=== PATIENT | male | born 1930 | race Caucasian/White ===

== ENCOUNTER 2018-06-02 13:15 | Inpatient (IN) | payer MEDICARE, BC, OTHER ==
[~2018-06-02] VITALS: Ht 152.4 cm; Wt 65.6 kg
--- NOTE | ~2018-06-02 | PLAN ---
[place] [address] REHAB UNIT PLAN OF CARE Name: HUDSON GUERRA Room: [address] IN [facility]#: [id number] Admission: 06/02/18 Attend Phys: Arabella Burns DO Discharge: Date of : [birth year] Report #: [id number] THIS REPORT FOR: //name// CC: Arabella óLpez DATE OF SERVICE: 06/03/2018 SUBJECTIVE: The patient doing well this afternoon, was transferred yesterday from [facility] for Parkinson disease and weakness. Previous level of function was modified independent to independent. Current level of function is minimum to moderate assist. Estimated length of stay is 14-16 days. Rehabilitation prognosis is good. Medical prognosis is good. PLAN OF CARE: Physical Therapy will see the patient 60-90 minutes per day for 5 days a week for ambulation, balance and coordination. Occupational Therapy will see the patient 60-90 minutes per day for 5 days a week for upper extremity strength, balance, coordination, bathing, dressing, and toileting. Speech and Language Pathology will see the patient 30-90 minutes per day for 5 days a week. This is an overall plan of care and may change and will be updated as needed. Estimated length of stay is 14-16 days with plan to discharge home after that. By: [id number] Burns DO /tiburcio
[2018-06-02] MEDS ORDERED: CLONAZEPAM 0.50.5 M1 PO (13:53)
[2018-06-02] MEDS ORDERED: FLORINEF ACETA0.1 MG PO (13:58)
[2018-06-02] MEDS ORDERED: WELLBUTRIN SR100 MG PO (14:01)
[2018-06-02] MEDS ORDERED: IRON325 PO (14:02)
[2018-06-02] MEDS ORDERED: ELIQUIS5 MG PO (14:05)
[2018-06-02] MEDS ORDERED: VITAMIN D2000 UNIT PO (14:09)
[2018-06-02] MEDS ORDERED: CARDIZEM CD120 MG PO (14:11)
[2018-06-02] MEDS ORDERED: DOFETILIDE250 MCG PO (14:16)
[2018-06-02] MEDS ORDERED: SINEMET CR 25-1 EACH PO (14:20)
[2018-06-02] MEDS ORDERED: LEXAPRO 10 MG T10 M2 PO (14:21)
[2018-06-02] MEDS ORDERED: LASIX 20 MG TAB20 MG PO (14:22)
[2018-06-02] MEDS ORDERED: NAMENDA 10 MG T10 MG PO (14:23)
[2018-06-02] MEDS ORDERED: OMEGA 3 1,0001 EACH PO (14:25)
[2018-06-02] MEDS ORDERED: DITROPAN XL5 MG PO (14:26)
[2018-06-02] MEDS ORDERED: PROTONIX40 M1 PO (14:28)
[2018-06-02] MEDS ORDERED: PRESERVISION A1 EACH PO (14:30)
--- NOTE | 2018-06-02 18:37 | NUR ---
PT ORIENTATED TO ROOM AND CONTROLS. PT IS ALERT BUT FORGETFULL.PT DOES HAVE TREMORS AND IS UNSTEADY WHEN UP.PT AMBULATES WITH GAITBELT AND WALKER MOD ASSIST OF 1 AND EXTRA TIME. PT DID GO TO BATHROOM AND VOIDED WELL.ADMISSION COMPLETE WITH DAUGHTER AND AT BEDSIDE.
[2018-06-02 19:00] VITALS: BP 95/56
[2018-06-03 04:16] LABS: HEMATOCRIT 35.3 % (42.0-52.0); HEMOGLOBIN 11.9 gm/dL (14.0-18.0); MCH 33.9 pg (26.0-34.0); MCHC 33.5 g/dL (28.0-37.0); MCV 101.1 fL (80.0-100.0); MPV 9.8 fl. (7.2-11.1); RBC 3.49 mil/uL (4.50-6.00); RDW-CV 15.7 % (10.5-14.5)
[2018-06-03 04:24] LABS: CALCIUM 9.1 mg/dL (8.5-10.1); CREATININE 1.2 mg/dL (0.6-1.3)
--- NOTE | 2018-06-03 06:06 | NUR ---
ASSUMED PT CARE AT 1930. PT ALERT AND ORIENTED TO SELF BUT SOMETIMES FORGETFUL, POLITE AND COOPERATIVE WITH CARES. PT ATTEMPTED TO AMBULATE TO BATHROOM TO VOID WITH ASSIST OF TWO, GAIT BELT AND WALKER BUT WAS UNSTEADY AND UNABLE TO STAND. PT VOIDED PER URINAL, STAFF EMPTIED. PRN TYLENOL ONCE FOR NECK ACHE. PT SLEPT WELL OVERNIGHT. USES CALL LIGHT APPROPRIATELY. CALL LIGHT AND FREQUENTLY USED ITEMS WITHIN USE. HOURLY ROUNDING COMPLETED, WILL CONTINUE TO MONITOR.
[2018-06-03 08:57] VITALS: BP 144/83
[2018-06-03 09:17] VITALS: BP 144/93
--- NOTE | 2018-06-03 18:03 | NUR ---
ASSUMED CARE AT 0730 PATIENT ALERT/ORIENTED, TYLENOL GIVEN X1 FOR NECK/BACK PAIN WITH GOOD RELIEF, UP WITH ASSIST OF ONE AND WALKER/GAIT BELT, PATIENT VERY UNSTEADY ON FEET, HAVE TO REMIND HIM TO KEEP WALKER UP CLOSE TO HIS BODY. HOURLY ROUNDING COMPLETED, BED/CHAIR ALARMS IN PLACE, CALL LIGHT IN REACH, PARTICIPATED IN ALL THERAPIES, TO DINING ROOM FOR MEALS
[2018-06-03 19:25] VITALS: BP 132/71
--- NOTE | 2018-06-03 19:25 | NUR ---
SITTING UP IN RECLINER WATCHING TV. STATES PAIN IN NECK AND BACK AT A "7". PATIENT FORGOT THAT IT HAD ONLY BEEN A HOUR SINCE RECEIVING TYLENOL. STATES SOMETIMES TAKES ALEVE AT HOME. TRANSFERRED FROM CHAIR TO BED WITH CGA, GAITBELT, WALKER, SOME LIFTING ASSIST WITH LEGS. CALL LIGHT AND URINAL WITHIN REACH. TOOK MEDICATIONS WHOLE A FEW AT A TIME WITH WATER.
--- NOTE | 2018-06-04 05:51 | NUR ---
RESTED QUIETLY WITH CPAP. USED URINAL X 3 DURING THE NIGHT. GAVE ALEVE LAST NIGHT WITH RELIEF. TYLENOL GIVEN THIS MORNING FOR NECK AND BACK PAIN. WILL CONTINUE TO MONITOR. HOURLY ROUNDING IN PROGRESS.
[2018-06-04 08:06] VITALS: BP 121/85
--- NOTE | 2018-06-04 16:54 | NUR ---
ASSUMED CARE AT 0730 PATIENT ALERT/FORGETFUL, TYLENOL GIVEN FOR NECK PAIN WITH FAIR RELIEF, UP TO W/C WITH WALKER/GAIT BELT, QUEING NEEDED TO KEEP WALKER CLOSE TO BODY AND TO REACH BACK WHEN SITTING DOWN. BED/CHAIR ALARMS IN PLACE, CALL LIGHT IN REACH, HOURLY ROUNDING COMPLETED. TO DINING ROOM FOR MEALS. FAMILY WITH PATIENT IN DINING ROOM WATCHING CHIEFS THIS AFTERNOON.
[2018-06-04 19:20] VITALS: BP 128/65
--- NOTE | 2018-06-04 19:20 | NUR ---
RESTING QUIETLY IN BED AND WATCHING [employer] ON TV. TYLENOL GIVEN PER REQUEST FOR COMPLAINT OF BACK PAIN RATED "7". CALL LIGHT AND URINAL WITHIN REACH. WILL CONTINUE TO MONITOR.
--- NOTE | 2018-06-05 05:10 | NUR ---
RESTED QUIETLY. USED URINAL X ONE DURING THE NIGHT. GAVE TYLENOL FOR COMPLAINAT OF BACK PAIN AT 0424 WITH RELIEF. PATIENT COMPLAINED OF DRY ITCHY SKIN ON LEGS. PROVIDED WITH LOTION AND PATIENT RUBBED LOTION ON HIS LEGS. HOURLY ROUNDING IN PROGRESS.
[2018-06-05 07:32] VITALS: BP 143/90
--- NOTE | 2018-06-05 13:02 | NUR ---
Nutrition: Padmitted to rehab. H/o Parkinson's, CVA, dementia, afib. Toleratin gtherapies. Wt: 148#. Eating 50-75% of Heart Healthy diet. On fish oil, MVI, lasix. No albumin recorded. Appears at low to mild risk. Will follow weekly.
--- NOTE | 2018-06-05 15:55 | NUR ---
SW met with pt to complete initial assessment, introduce self, and SW role on inpt rehab unit. Pt lives at home with . Pt dtr lives downstairs in the same home and is supportive as needed. Pt has a RW. Pt has a bipap with [facility]. Pt has hx with HH but does not recall name of agency. Pt PCP Lazaro López MD. SW to continue to follow to assist with safe dc planning.
--- NOTE | 2018-06-05 18:34 | NUR ---
PT CALLS FOR ASSIST TO BATHROOM AND AMBULATES WITH 1,GAITBELT AND WALKER WITH SLOW UNSTEADY GAIT AND QUEING. PRN FOR NECK AND BACK PAIN GIVEN THIS AFTERNOON WITH GOOD EFFECT.PT HAS URINARY DRIBBLING AND NEEDS ASSIST WITH CLEANSING AFTER BM. PT HAS HAD 3 MOD SOFT FORMED BM'S TODAY. PT ALERT BUT CAN BE FORGETFULL. PT EATS MEALS IN DINNINGROOM.
[2018-06-05 20:00] VITALS: BP 118/64
--- NOTE | 2018-06-05 20:25 | NUR ---
RESTING QUIETLY IN BED AND WATCHING TV. URINAL CAN CALL LIGHT WITHIN REACH. TYLENOL GIVEN PER REQUEST FOR COMPLAINT OF BACK PAIN.
--- NOTE | 2018-06-06 05:31 | NUR ---
RESTED WITH CPAP ON/OFF. USED URINAL DURING THE NIGHT. NO FURTHER COMPLAINT OF PAIN. HOURLY ROUNDING IN PROGRESS.
[2018-06-06 07:54] VITALS: BP 138/78
--- NOTE | 2018-06-06 18:41 | NUR ---
PT REMINDED TO CALL FOR ASSIST UP TO BATHROOM OR TO TRANSFERR. PT UP WITH GAITBELT AND WALKER AND QUEING TO STAY IN WALKER AND TAKE BIGGER STEPS. PRN FOR NECK PAIN GIVEN EARLIER WITH GOOD EFFECT. PT VOIDS WELL AND HAS HAD MED SOFT BM TODAY. PT EATS MEALS IN DINNINGROOM AND IS PLESANT AND APPROPIATE. BED AND CHAIR ALARMS USED.
[2018-06-06 20:00] VITALS: BP 146/59
--- NOTE | 2018-06-07 01:46 | NUR ---
ASSUMED CARE @ 1944-.FOUND WALKING W/ GB & WALKER ALONE BY BATHROOM DOOR ALREADY.INSTRUCTED TO CALL FOR ASSIST.CLAIMS DOES NOT WANT TO BOTHER NURSES.SEE PAIN MANAGEMENT @ 2002.BED ALARM PUT ON @ 2019 WHILE IN BED.HOB UP. URINAL W/IN REACH.WANTS TO TAKE OFF PJ PANTS & UNDERWEAR @ 2019.ASSISTED. PATIENT WANTS RN TO APPLY Z GUARD PASTE TO PINK GROINS & DONE @ 2024 AFTER BEST CARE.STILL AWAKE @ 2199-WATCHING TV & C PAP ALREADY ON @ THIS TIME.WANTS ANOTHER DIMITRI ICE CREAM @ 0000-06/07-TUE.BUT ONLY AVAILABLE IS VANILLA ICE CREAM & TAKEN BY PATIENT.NURSE EMPTIES URINAL @ NIGHT.ON HOURLY ROUNDS.MEDIA ACCOUNT EXECUTIVE DOING ODD HOUR ROUNDS.
--- NOTE | 2018-06-07 05:13 | NUR ---
SLEEPING EARLY SINCE 2047 BUT AWAKE @ INTERVALS @ 0000-06/07-TUE.-0200 & 0300. NO TREMORS NOTED.BRP X1 FOR BM.USED URINAL X3.URINE ACCIDENT X1.SPILLED URINAL IN BEDPAD.TOOK ALL DIMITRI ICE CREAM HS SNACK & VANILLA ICE CREAM @ 0000.
[2018-06-07 07:30] VITALS: BP 127/70
[2018-06-07 13:11] LABS: INFLUENZA A ANTIGEN None Detected (None Detect); INFLUENZA B ANTIGEN None Detected (None Detect)
--- NOTE | 2018-06-07 16:09 | NUR ---
JOSEPH and med rohit Irizarry met with pt to review team conference summary and plan for pt to remain on rehab unit to continue therapies at least one more week with team to reassess pt length of stay during team conference next Tuesday. Pt in agreement with plan. SW to continue to follow to assist with safe dc planning and contacting family as well.
--- NOTE | 2018-06-07 19:34 | NUR ---
ASSUMED CARE AT 0730 PATIENT ALERT/ORIENTED, TYLENOL GIVEN X1 FOR HEAD CONGESTION PATIENT STARTED ON CLARITIN FOR COLD SYMPTOMS, FLU SWAB WAS NEGATIVE. HOURLY ROUNDING COMPLETED, BED/CHAIR ALARMS IN PLACE, CALL LIGHT IN REACH, PARTICIPATED IN ALL THERAPIES TODAY, TO DINING ROOM FOR MEALS. PATIENT IS TO BE RETEAMED.
[2018-06-07 20:39] VITALS: BP 117/68
--- NOTE | 2018-06-07 20:50 | NUR ---
RESTING QUIETLY IN BED AND WATCHING BASKETBALL ON TV. TYLENOL GIVEN PER REQUEST FOR COMPLAINT OF HEADACHE AND SORE THROAT. CALL LIGHT AND URINAL WITHIN REACH. TOOK MEDICATIONS WHOLE A FEW AT A TIME WITH WATER.
--- NOTE | 2018-06-08 05:54 | NUR ---
ANAY PARIKH GIVEN FOR COMPLAINT OF COUGHING WITH RELIEF. USED URINAL DURING THE NIGHT. USED CPAP DURING THE NIGHT. HOURLY ROUNDING IN PROGRESS.
[2018-06-08 09:35] VITALS: BP 128/74
[2018-06-08 20:30] VITALS: BP 115/66
--- NOTE | 2018-06-09 05:29 | NUR ---
ASSUMED PT CARE AT 1930. PT ALERT AND ORIENTED X4, BUT FORGETFUL. POLITE AND COOPERATIVE WITH CARES. PT HAS COUGH. TYLENOL X1 FOR NECK PAIN. TESSALON PEARLES ONCE FOR COUGH. USES URINAL OVERNIGHT, STAFF EMPTIES. PT WEARS HOME CPAP OVERNIGHT. USES CALL LIGHT APPROPRIATELY. CALL LIGHT AND FREQUENTLY USED ITEMS WITHIN REACH. HOURLY ROUNDING IN PROGRESS, WILL CONTINUE TO MONITOR.
[2018-06-09 08:14] VITALS: BP 125/75
--- NOTE | 2018-06-09 15:53 | NUR ---
SW attempted to call pt family to follow up and provide any updates related to team conference and plan to reteam; SW left detailed message with pt and encouraged call back with any questions or concerns. SW to continue to follow to assist with safe dc planning.
--- NOTE | 2018-06-09 18:34 | NUR ---
ASSUMED CARE AT 0730 PATIENT ALERT/ORIENTED, NO COMPLAINTS OF PAIN THIS SHIFT, TESSALON PEARLS GIVEN X2 WITH GOOD RELIEF, UP WITH ONE AND WALKER/GAIT BELT, HOURLY ROUNDING COMPLETED, BED/CHAIR ALARMS IN PLACE, CALL LIGHT IN REACH, PARTICIPATED IN ALL THERAPIES TODAY, TO DINING ROOM FOR MEALS.
[2018-06-09 20:26] VITALS: BP 108/50
--- NOTE | 2018-06-10 05:31 | NUR ---
ASSUMED PT CARE AT 1930. PT ALERT AND ORIENTED X4, POLITE AND COOPERATIVE WITH CARES. TYLENOL X1 FOR NECK PAIN. USES URINAL OVERNIGHT, STAFF EMPTIES. PT WEARS HOME CPAP OVERNIGHT. USES CALL LIGHT APPROPRIATELY. CALL LIGHT AND FREQUENTLY USED ITEMS WITHIN REACH. HOURLY ROUNDING IN PROGRESS, WILL CONTINUE TO MONITOR.
[2018-06-10 08:00] VITALS: BP 125/88
[2018-06-10 20:00] VITALS: BP 108/61
--- NOTE | 2018-06-11 05:25 | NUR ---
ASSUMED PT CARE AT 1930. PT ALERT AND ORIENTED X4, POLITE AND COOPERATIVE WITH CARES. PT UP WITH ONE, GAIT BELT AND WALKER TO BATHROOM, STOOL X1. PT USES URINAL OVERNIGHT, STAFF EMPTIES. PRN TYLENOL ONCE THIS SHIFT FOR NECK PAIN. WEARS HOME CPAP OVERNIGHT. TAKES PILLS WHOLE WITH WATER WITHOUT DIFFICULTY. USES CALL LIGHT APPROPRIATELY. CALL LIGHT AND FREQUENTLY USED ITEMS WITHIN REACH. BED ALARM ON FOR SAFETY. HOURLY ROUNDING IN PROGRESS, WILL CONTINUE TO MONITOR.
[2018-06-11 07:50] VITALS: BP 130/75
--- NOTE | 2018-06-11 18:21 | NUR ---
AM ASSESSMENT AND VITAL SIGNS COMPLETED DOCUMENTED. PT ASSISTED TO BATHROOM, DINING ROOM AND AROUND ROOM SEVERAL TIMES THIS SHIFT. PT's GAIT CAN BE UNSTEADY, HE REQUIRES FREQUENT INSTRUCTIONS ON USING THE WALKER. TESSALON PEARLES AND COUGH DROPS GIVEN FOR OCCASIONAL NON PRODUCTIVE COUGH. PT's FAMILY VISITED FOR A SHORT TIME THIS EVENING. FALL PRECAUTIONS AND HOURLY ROUNDING CONTINUE.
[2018-06-11 20:00] VITALS: BP 108/61
--- NOTE | 2018-06-12 05:05 | NUR ---
ASSUMED CARES AT 1920. ALERT AND ORIENTED. PLEASANT. PRODUCTIVE COUGH THROUGHOUT THE NIGHT. TESSLON PERLES GIVEN. TAKES PILLS WHOLE. ALEVE GIVEN FOR NECK PAIN. CPAP AT NIGHT. MIN ASSIST WITH GAIT BELT AND WALKER. USED URINAL AND NURSING EMPTIED. SLEPT SOME OFF AND ON. USED CALL LIGHT APPROPRIATELY. BED ALARM ON.
[2018-06-12 07:45] VITALS: BP 133/71
--- NOTE | 2018-06-12 17:00 | NUR ---
ASSUMMED CARE OF PT AT 0730, PT ALERT, FORGETFUL, PT TRANSFERS WITH ASSIST OF 1, GB WALKER, COMPLAINS OF NECK PAIN, MEDICATED X 1 PER ORDER, VOIDS PER URINAL/TOILET, MEALS IN DININGROOM, PARTICIPATED IN ALL THERAPIES, HOURLY ROUNDING COMPLETE, ASSESSMENT COMPLETE, WILL CONTINUE TO MONITOR.
[2018-06-12 20:00] VITALS: BP 122/66
--- NOTE | 2018-06-13 05:23 | NUR ---
ASSUMED PT CARE AT 1930. PT ALERT AND ORIENTED X4, POLITE AND COOPERATIVE WITH CARES. PT UP WITH ONE, GAIT BELT AND WALKER TO BATHROOM. PT USES URINAL OVERNIGHT, STAFF EMPTIES. PRN TYLENOL ONCE THIS SHIFT FOR NECK PAIN. WEARS HOME CPAP OVERNIGHT. PRODUCTIVE COUGH. TAKES PILLS WHOLE WITH WATER WITHOUT DIFFICULTY. USES CALL LIGHT APPROPRIATELY. CALL LIGHT AND FREQUENTLY USED ITEMS WITHIN REACH. BED ALARM ON FOR SAFETY. HOURLY ROUNDING IN PROGRESS, WILL CONTINUE TO MONITOR.
[2018-06-13 08:30] VITALS: BP 121/74
--- NOTE | 2018-06-13 14:41 | NUR ---
SW called and spoke at length with pt Marjan in preparation for team conference on Tuesday. Pt commented that she felt pt was doing better but she also had hoped pt would be walking better. Pt commented that she is very hopeful pt will be able to walk their dtr down the aisle in her wedding on Tuesday night. SW to continue to follow to assist with safe dc planning.
--- NOTE | 2018-06-13 16:28 | NUR ---
ASSUMMED CARE OF PT AT 0730, PT ALERT, FORGETFUL, TRANSFERS WITH ASSIT OF 1, NEEDS SOME LIFTING ASSIST AT TIMES, AMBULATES TO BATHROOM WITH MIN ASSIST OF 1, GB WALKER, VOIDS PER URINAL AND TOILET, BM X 1 THIS SHIFT, TAKING FOOD AND FLUIDS WELL, COMPLAINS OF LOOSE COUGH, MEDICATED PER ORDER, STATES HIS NECK FEELS ALITTLE BETTER TODAY, DID NOT NEED ANY PAIN MEDICATION, PARTICIPATED IN ALL THERAPIES, HOURLY ROUNDING COMPLETED ASSESSMENT COMPLETE, WILL CRISTINA TO MONITOR.
[2018-06-13 20:00] VITALS: BP 119/66
--- NOTE | 2018-06-14 05:46 | NUR ---
ASSUMED PT CARE AT 1930. PT ALERT AND ORIENTED X4, POLITE AND COOPERATIVE WITH CARES. PT UP WITH ONE, GAIT BELT AND WALKER TO BATHROOM. PT USES URINAL OVERNIGHT, STAFF EMPTIES. PRN TYLENOL ONE THIS SHIFT FOR NECK PAIN AND PRN TESSALON PERLES ONCE FOR COUGH. PT SLEPT WELL, WEARS HOME CPAP OVERNIGHT. TAKES PILLS WHOLE WITH WATER WITHOUT DIFFICULTY. USES CALL LIGHT APPROPRIATELY. CALL LIGHT AND FREQUENTLY USED ITEMS WITHIN REACH. HOURLY ROUNDING IN PROGRESS, WILL CONTINUE TO MONITOR.
[2018-06-14 08:20] VITALS: BP 145/81
--- NOTE | 2018-06-14 16:31 | NUR ---
JOSEPH and Dr Burns met with pt to review team conference summary and plan for pt to remain on rehab unit another week with team to reassess pt length of stay during team conference next Tuesday with a pass on Tuesday for pt to go to pt dtr's tueding. Team's recommendation is for pt to be wc level down the aisle as opposed to risk of falling with walker down a carpeted possibly sloped aisle. Pt in agreement with plan. SW to discuss plan with pt family and to continue to follow to assist with safe dc planning.
--- NOTE | 2018-06-14 17:50 | NUR ---
ASSUMED CARE AT 0730 PATIENT ALERT/ORIENTED, NO COMPLAINTS OF PAIN THIS SHIFT, UP WITH ASSIST OF ONE AND WALKER/GAIT BELT, TO DINING ROOM FOR MEALS, BED/CHAIR ALARMS IN PLACE, CALL LIGHT IN REACH, HOURLY ROUNDING COMPLETED, PARTICIPATED IN ALL THERAPIES TODAY
[2018-06-14 20:00] VITALS: BP 136/61
--- NOTE | 2018-06-15 01:35 | NUR ---
ASSUMED CARE @ .SITS IN RECLINER W/ LE'S UP VISITING W/ , DAUGHTER & HER & BEHAVIORAL HEALTH ASSOCIATE.NO TREMORS NOTED.SEE PAIN MANAGEMENT @ 2211. URINAL W/IN REACH @ NIGHT.BED ALARM PUT ON @ 2129.HOB UP WHILE IN BED.ON HOURLY ROUNDS.WOUND CARE CENTER CONSULTANT DOING ODD HOUR ROUNDS.
--- NOTE | 2018-06-15 05:15 | NUR ---
SLEPT LATE SINCE -06/15-TUESDAY & SLEEPING ALL NIGHT.TURNS SELF @ NIGHT.BRP X2 W/ ASSIST.USED URINAL X1 DURING NIGHT.TOOK ALL DIMITRI.ICE CREAM HS SNACK.
[2018-06-15 07:00] VITALS: BP 125/85
[2018-06-15 08:00] VITALS: BP 125/85
--- NOTE | 2018-06-15 17:50 | NUR ---
ASSUMED CARE AT 0730 PATIENT ALERT/ORIENTED, FORGETFUL/HX OF DEMENTIA. UP WITH ASSIST OF ONE AND WALKER/GAIT BELT, NO COMPLAINTS OF PAIN THIS SHIFT, PARTICIPATED IN ALL THERAPIES TODAY, TO DINING ROOM FOR MEALS, BED/CHAIR ALARMS IN PLACE CALL LIGHT IN REACH, HOURLY ROUNDING COMPLETED. PASS FOR DAUGHTERS WEDDING TOMORROW.
[2018-06-15 20:20] VITALS: BP 129/75
--- NOTE | 2018-06-16 02:59 | NUR ---
ASSUMED CARE @ 1929-06/15-.BEING ASSISTED TO BED BY ANOTHER RN @ THIS TIME.URINAL W/IN REACH.BED ALARM PUT ON @ 1929.HOB UP.C PAP ALREADY ON @ 2299. SEE PAIN MANAGEMENT @ 54-06/16-TUESDAY.ON HOURLY ROUNDS.RETAIL CUSTOMER SERVICE REPRESENTATIVE DOING ODD HOUR ROUNDS.
--- NOTE | 2018-06-16 05:26 | NUR ---
SLEPT LATE SINCE 2300 & SLEEPING GOOD ALL NIGHT.BRP W/ ASSIST X1.USED URINAL X2.NURSE EMPTIES URINAL @ NIGHT.TOOK ALL ORANGE SHERBET HS SNACK.
[2018-06-16 07:00] VITALS: BP 116/65
--- NOTE | 2018-06-16 14:31 | NUR ---
ASSUMED CARE AT 0730. ALERT ORIENTED PLEASANT COOPERATIVE. HX OF PARKINSONS AND DEMENTIA. SITTING IN RECLINER AT BEDSIDE. EATING BREAKFAST APPETITE FAIR HE DIDNT LIKE BREAKFAST MENU THIS A.M. TOOK MEDS ONE AT A TIME WITH WATER WITHOUT DIFFICULTY. DENIES PAIN OR CONCERNS. USES CALL LIGHT APPROPRIATELY FOR ASSISTANCE. PARTICIPATING IN THERAPIES THROUGHOUT THE DAY. TRANSFERS WITH SBA G BELT AND WALKER.
--- NOTE | 2018-06-16 17:51 | NUR ---
PTS. DAUGHTER ARRIVED AT 1725 TO NURSERY RN PT. FOR WEDDING PASS FORM SIGNED AND INSTRUCTIONS TO CALL IF THEY ARENT HERE BY 2100.
[2018-06-16 21:45] VITALS: BP 127/70
--- NOTE | 2018-06-17 05:27 | NUR ---
ASSUMED CARES AT 1920. PT WAS OFF OF UNIT ON PASS FOR DAUGHTER'S WEDDING AND RETURNED AT 2100 VIA W/C. ALERT AND ORIENTED. FORGETFUL AT TIMES. C/O NECK PAIN. TYLENOL GIVEN. TAKES PILLS WHOLE BUT NEEDS EXTRA TIME. MIN ASSIST WITH GAIT BELT AND WALKER. UP TO BATHROOM BUT ALSO USED URINAL OVERNIGHT. NURSING EMPTIED. CPAP ON AT NIGHT. SLEPT WELL. CALL LIGHT IN REACH AND BED ALARM ON.
[2018-06-17 07:53] VITALS: BP 126/70
--- NOTE | 2018-06-17 18:04 | NUR ---
ASSUMED CARE AT 0730 PATIENT ALERT/ORIENTED, TYLENOL AND TRAMADOL GIVEN THIS SHIFT FOR NECK PAIN WITH FAIR RELIEF, UP WITH ASSIST OF ONE AND WALKER/GAIT BELT, TO DINING ROOM FOR MEALS, BED/CHAIR ALARMS IN PLACE, CALL LIGHT IN REACH, HOURLY ROUNDING COMPLETED, PARTICIPATED IN ALL THERAPIES TODAY
[2018-06-17 20:27] VITALS: BP 126/66
--- NOTE | 2018-06-18 05:28 | NUR ---
ASSUMED PT CARE AT 1930. PT ALERT AND ORIENTED, POLITE AND COOPERATIVE WITH CARES. PT OCCASIONALLY FORGETFUL. PRN TYLENOL ONCE FOR C/O NECK PAIN. TAKES PILLS WHOLE WITH WATER WITHOUT DIFFICULTY. MIN ASSIST WITH GAIT BELT AND WALKER. USED URINAL OVERNIGHT, STAFF EMPTIED. HOME CPAP OVERNIGHT. CALL LIGHT AND FREQUENTLY USED ITEMS WITHIN REACH. BED ALARM ON FOR SAFETY. USES CALL LIGHT APPROPRIATELY. HOURLY ROUNDING IN PROGRESS, WILL CONTINUE TO MONITOR.
[2018-06-18 08:42] VITALS: BP 126/84
--- NOTE | 2018-06-18 18:59 | NUR ---
ASSUMED CARE AT 0730 PATIENT ALERT/ORIENTED, FORGETFUL, UP WITH ASSIST OF ONE AND WALKER/GAIT BELT, HOURLY ROUNDING COMPLETED, BED/CHAIR ALARMS IN PLACE, CALL LIGHT IN REACH. TO DINING ROOM FOR MEALS
[2018-06-18 20:00] VITALS: BP 116/60
[2018-06-19 04:20] LABS: CALCIUM 8.6 mg/dL (8.5-10.1); CREATININE 1.3 mg/dL (0.6-1.3); POTASSIUM 3.8 mmol/L (3.5-5.1)
--- NOTE | 2018-06-19 05:15 | NUR ---
ASSUMED PT CARE AT 1930. PT ALERT AND ORIENTED, POLITE AND COOPERATIVE WITH CARES. SOMETIMES FORGETFUL. SITTING UP IN RECLINER AT SHIFT CHANGE. TRANSFERS WITH MIN ASSIST OF ONE, GAIT BELT AND WALKER. PT TO BATHROOM TO VOID, NO STOOL THIS SHIFT. PRN TYLENOL ONCE FOR C/O NECK PAIN. TAKES PILLS WHOLE WITH WATER WITHOUT DIFFICULTY. USED URINAL OVERNIGHT, STAFF EMPTIED. WORE HOME CPAP ALL NIGHT. BED ALARM ON FOR SAFETY. USES CALL LIGHT APPROPRIATELY. HOURLY ROUNDING IN PROGRESS, WILL CONTINUE TO MONITOR.
[2018-06-19 07:30] VITALS: BP 130/58
--- NOTE | 2018-06-19 16:45 | NUR ---
ASSUMED CARE AT 0730. ALERT AND ORIENTED PLEASANT COOPERATIVE. HX OF PARKINSONS TRANSFERS WITH 1 ASSIST G BELT WALKER FROM BED TO RECLINER AT BEDSIDE. FEEDS SELF BREAKFAST ATE OK. TAKES MEDS WITH WATER WITHOUT DIFFICULTY. AMBULATED TO TOILET USING WALKER THIS AFTERNOON. UP IN RECLINER MOST OF THE DAY. PARTICIPATING IN THERAPIES THROUGHOUT THE DAY. DENIES PAIN OR CONCERNS.
[2018-06-19 20:00] VITALS: BP 139/69
--- NOTE | 2018-06-20 05:37 | NUR ---
ASSUMED PT CARE AT 1930. PT ALERT AND ORIENTED, POLITE AND COOPERATIVE WITH CARES. HX OF PARKINSONS. SITTING UP IN RECLINER AT SHIFT CHANGE WATCHING FOOTBALL. TRANSFERS WITH MIN ASSIST OF ONE, GAIT BELT AND WALKER. PT TO BATHROOM AT SHIFT CHANGE, STOOL X1. PRN TYLENOL AND PRN TRAMADOL ONCE EACH FOR NECK PAIN. TAKES PILLS WHOLE WITH WATER WITHOUT DIFFICULTY. PT SLEPT WELL OVERNIGHT. USES URINAL TO VOID, STAFF EMPTIES. WORE HOME CPAP ALL NIGHT. BED ALARM ON FOR SAFETY. USES CALL LIGHT APPROPRIATELY. HOURLY ROUNDING IN PROGRESS, WILL CONTINUE TO MONITOR.
[2018-06-20 08:05] VITALS: BP 130/68
--- NOTE | 2018-06-20 15:31 | NUR ---
ASSUMED CARE AT 0730. ALERT ORIENTED PLEASANT COOPERATIVE. HX OF PARKINSONS. DEMENTIA. TRANSFERS WITH SBA G BELT WALKER AND AMBULATES TO BR HAS HAD 2 LARGE BMS FORMED THROUGHOUT THE DAY. DID C/O NAUSEA AFTER THE FIRST BM BUT IT PASSED. APPETITE GOOD FED SELF AND TAKES MEDS WITHOUT DIFFICULTY. PARTICIPATING IN THERAPIES. USING CALL LIGHT APPROPRIATELY FOR ASSISTANCE. DENIES PAIN OR REQUESTS. ABLE TO DO HYGEINE AND CLOTHING ADJUSTMENTS AFTER BMS.
[2018-06-20 19:31] VITALS: BP 104/54
--- NOTE | 2018-06-21 01:47 | NUR ---
ASSUMED CARE @ 1939-06/20-.SITS IN RECLINER W/ LE'S UP-APPEARS SLEEPING. CHAIR ALARM ON ALREADY @ 1939.AT 2029-FOUND WALKING W/OUT WALKER TO SINK BY DOOR.UNABLE TO HEAR CHAIR ALARM DUE TO HIGH VOLUME TV.ASSISTED TO BATHROOM & GIVEN WALKER.TO BED @ 2034.HOB UP.BED ALARM PUT ON @ 2049.WANTS BATHROOM LIGHTS ON ALL NIGHT.SEE PAIN MANAGEMENT @ 2045.APPEARS SLEEPING @ 2139-W/ C PAP ON ALREADY.ON HOURLY ROUNDS.MOLECULAR GENETIC PATHOLOGIST DOING ODD HOUR ROUNDS TILL 2299.CALLED @ 129.USED URINAL & SPILLED LARGE AMOUNT URINE.BEST CARE ONE.ALL LINENS & BEDPAD CHANGED.NOTED PINK-GROINS.BEST CARE GIVEN & MOISTURE BARRIER CREAM APPLIED FOR NOW @ 129.WILL ASK DR TO ORDER NYSTATIN POWDER.NURSE EMPTIES URINAL @ NIGHT.
--- NOTE | 2018-06-21 05:19 | NUR ---
SLEPT EARLY SINCE 1940 WHILE IN RECLINER.TOOK ALL ORANGE SHERBET HS SNACK. BRP X1 W/ ASSIST.USED URINAL X1 W/ SPILL OR URINE ACCIDENT X1.BEST CARE DONE.
[2018-06-21 07:30] VITALS: BP 146/77
--- NOTE | 2018-06-21 16:31 | NUR ---
SW met with pt to review team conference summary and plan for pt to dc home tomorrow with family and after family training. SW discussed earlier in the day with pt dtr and scheduled family training for 10:00 am on . Team recommending shower chair and grab bars and services to follow. SW to continue to follow to assist with safe dc planning. Pt in agreement with plan.
[2018-06-21 20:33] VITALS: BP 113/64
--- NOTE | 2018-06-22 01:25 | NUR ---
ASSUMED CARE @ 1944-.SITS IN RECLINER W/ LE'S UP WATCHING TV.CHAIR ALARM ALREADY ON @ 1944.HOB UP WHILE IN BED.BED ALARM PUT ON @ 2109.SEE PAIN MANAGEMENT @ 2104. C PAP ON ALREADY @ 2149.URINAL W/IN REACH.ON HOURLY ROUNDS.MEDICAL DEVICE ASSEMBLER DOING ODD HOUR ROUNDS.
[2018-06-22 04:56] VITALS: BP 113/64
[2018-06-22] MEDS ORDERED: CLARITIN10 MG PO (05:03)
[2018-06-22] MEDS ORDERED: NYAMYC15 GM TOP (05:10)
--- NOTE | 2018-06-22 05:31 | NUR ---
SLEEPING SINCE 2149 & SLEPT GOOD ALL NIGHT.BRP X1 W/ ASSIST BEFORE HS.USED URINAL X2.NURSE EMPTIES URINAL @ NIGHT.TOOK ALL DIMITRI.ICE CREAM HS SNACK. NEW ORDER FOR NYSTATIN POWDER APPLIED TO PINK GROINS @ HS AFTER BEST CARE & DRYING WELL.INSTRUCTED PATIENT TO WASH AREAS FIRST THEN DRY WELL BEFORE PUTTING NYSTATIN POWDER.FOR DISCHARGE TODAY-06/22-TUESDAY.
[2018-06-22] MEDS ORDERED: SINEMET CR 25-1 EACH PO (07:22)
[2018-06-22 08:10] VITALS: BP 113/59
[2018-06-22 10:30] VITALS: BP 113/64
--- NOTE | 2018-06-22 10:33 | NUR ---
Pt to dc home today with family care. Pt dtr completing family training today starting at 10 am. HH services to follow through pt/family preference of [facility] . JOSEPH faxed referral, dc orders, and med list to [facility] . [phone] fax [phone].
--- NOTE | 2018-06-22 11:43 | NUR ---
AM ASSESSMENT AND VITAL SIGNS COMPLETED DOCUMENTED. FAMILY TRAINING COMPLETED. DISCHARGE INSTRUCTIONS PROVIDED TO PT AND HIS FAMILY. ALL QUESTIONS ASKED AND ANSWERED.
--- NOTE | 2018-06-22 11:59 | NUR ---
PT AND BELONGINGS TRANSPORTED TO THE EXIT, DISCHARGED HOME IN STABLE CONDITION WITH HOME HEALTH TO FOLLOW.
== END 2018-06-22 12:00 | disposition home health service (06) | DRG 57 ==
LOC: M.REH 13:15
PROVIDERS: Internal Medicine; ADMIT Physical Medicine & Rehabilitation
DX: G20 Parkinson's disease (principal); I48.91 Unspecified atrial fibrillation; F32.9 Major depressive disorder, single episode, unspecified; R09.89 Other specified symptoms and signs involving the circulatory and respiratory systems; R53.81 Other malaise; M54.9 Dorsalgia, unspecified; R51 Headache; M54.2 Cervicalgia; R11.2 Nausea with vomiting, unspecified; F41.1 Generalized anxiety disorder; F02.80 Dementia in other diseases classified elsewhere, unspecified severity, without behavioral disturbance, psychotic disturbance, mood disturbance, and anxiety; Z95.2 Presence of prosthetic heart valve; Z88.8 Allergy status to other drugs, medicaments and biological substances; Z79.899 Other long term (current) drug therapy; Z98.41 Cataract extraction status, right eye; Z98.42 Cataract extraction status, left eye; Z99.81 Dependence on supplemental oxygen; Z87.891 Personal history of nicotine dependence; Z86.73 Personal history of transient ischemic attack (TIA), and cerebral infarction without residual deficits